=== PATIENT | female | born 1990 | race Caucasian/White ===

== ENCOUNTER 2025-09-30 22:42 | Emergency (ER) | payer OTHER, SELFPAY ==
[2025-09-30 22:46] VITALS: BP 129/90
[2025-10-01] MEDS: NSS 1000 IV (00:19)
[2025-10-01] MEDS: TORADOL 15 MG IV (00:19)
[2025-10-01 00:31] LABS: HCG, Serum Qualitative Screen Negative
[2025-10-01 00:36] LABS: ALT (SGPT) 15 U/L (0-35); AST (SGOT) 21 U/L (14-36); Albumin 4.5 g/dl (3.5-5.0); Alkaline Phosphatase 83 U/L (38-126); Blood Urea Nitrogen 12 mg/dl (7-17); Calcium 9.6 mg/dl (8.4-10.2); Carbon Dioxide 29 mmol/L (22-30); Chloride 104 mmol/L (98-107); Glucose 105 mg/dl (70-99); Potassium 4.1 mmol/L (3.5-5.1); Sodium 139 mmol/L (135-145); Total Protein 6.8 g/dl (6.3-8.2); eGFR > 60.00
[2025-10-01 00:42] LABS: Hematocrit 36.7 % (37.0-47.0); Hemoglobin 12.7 g/dL (12.0-16.0); Mean Corp Hgb Conc. 34.6 g/dL (33.0-37.0); Mean Corpuscular Volume 91.3 fL (81.0-99.0); Nucleated Red Blood Cells % 0 %; Platelet Count 262 10^3/uL (130-400); Red Cell Dist. Width 11.9 % (11.5-14.5)
[2025-10-01 01:05] LABS: Urine Character Cloudy (Clear)
[2025-10-01 01:08] LABS: HCG, Urine Qualitative Screen Negative
--- NOTE | 2025-10-01 01:17 | ED.GENMED ---
History of Present Illness
General
Chief Complaint: Urinary Symptoms
Source: patient
Exam Limitations: none
Time Seen by Provider: 09/30/25 23:27
Nursing documentation reviewed up to this point in time: agreed with
History of Present Illness
History of Present Illness:
Note:
CHIEF COMPLAINT(S)
Kidney pain or lower back pain.
HISTORY OF PRESENT ILLNESS
The patient is a 35-year-old female with a history of kidney stones, presenting with pain in the kidney or lower back area, which she describes as similar to previous kidney stone episodes. The symptoms began on Saturday. The patient reports
experiencing chills and heat flashes but denies any definitive fever, although she noted her temperature reached 99�F. Urination is not painful or difficult but is discolored, and she notes diminished urinary output despite adequate fluid intake,
including water and cranberry juice. The pain remains persistent and unrelieved by Tylenol and ibuprofen.
PAST MEDICAL AND SURGICAL HISTORY
History of kidney stones.
SOCIAL HISTORY
The patient works in animal-assisted therapy. She drinks iced coffee usually once a day but denies smoking. She noted alcohol intake but did not specify frequency or quantity. No drug use.
REVIEW OF SYSTEMS
- General: Reports chills and heat flashes.
- Genitourinary: Discolored urine, decreased urinary output, no painful urination.
PHYSICAL EXAM
General: Alert, no acute distress.
Skin: Warm, dry.
Head: Normocephalic, atraumatic.
Neck: Supple, trachea midline.
Eye Ears, nose, mouth and throat: Oral mucosa moist.
Cardiovascular: Normal peripheral perfusion, No edema.
Respiratory: Respirations are non-labored.
Gastrointestinal: Abdomen nondistended.
Back: Normal range of motion, Normal alignment.
Musculoskeletal: Normal ROM, normal strength.
Neurological: Alert and oriented to person, place, time, and situation, No focal neurological deficit observed.
Psychiatric: Cooperative, appropriate mood & affect.
PLAN
The plan includes obtaining a CT scan of the abdomen to assess the cause of the pain. The patient will also receive IV fluids to assist with hydration.
DIFFERENTIAL DIAGNOSIS
The Differential Diagnosis includes, in no particular order and is not limited to:
1. Nephrolithiasis (Kidney stones)
2. Pyelonephritis
3. Urinary Tract Infection
4. Hydronephrosis
5. Musculoskeletal back pain
6. Lower ureteral calculus
7. Bladder infection or cystitis
8. Retroperitoneal pathology
9. Gynecological causes such as ovarian cyst or torsion
10. Gastrointestinal causes like constipation or diverticulitis
Disposition:
SUMMARY OF ENCOUNTER
The patient, a 35-year-old female with a history of kidney stones, presented with symptoms suggestive of a potential urinary tract infection (UTI) and was evaluated in the emergency department. A CT scan was performed to rule out kidney stones and
other acute abdominal abnormalities. The scan did not reveal any kidney stones or other acute issues. The clinical presentation and findings suggest a urinary tract infection, which aligns with her symptoms of kidney area pain and discolored urine.
The patient was managed with IV fluids for hydration and was prescribed an antibiotic to treat the UTI.
DISPOSITION
Discharge.
ASSESSMENT
The patient is diagnosed with a urinary tract infection.
PLAN
The patient will be started on cephalexin for the treatment of the urinary tract infection. She is to follow up with her primary care provider for further management and to ensure resolution of symptoms.
INDEPENDENT REVIEW OF LABS AND INTERPRETATION OF TESTS
My independent interpretation of the CT scan shows no kidney stones or acute abdominal abnormalities.
PATIENT EDUCATION AND COUNSELING
The patient was informed about the diagnosis of a urinary tract infection and the importance of completing the full course of antibiotics. She was advised to monitor symptoms and seek further medical attention if her condition worsens.
FOLLOW-UP INSTRUCTIONS
The patient is instructed to follow up with her primary care provider for ongoing management of her urinary tract infection and to ensure resolution of symptoms.
MEDICATION RECONCILIATION
The patient has been prescribed cephalexin (Keflex) for the treatment of her urinary tract infection.
MEDICAL DECISION MAKING
- Complexity of Data Reviewed: Chronic conditions affecting care include a history of kidney stones. Differential diagnosis included nephrolithiasis, pyelonephritis, urinary tract infection, hydronephrosis, musculoskeletal back pain, lower ureteral
calculus, bladder infection or cystitis, retroperitoneal pathology, gynecological causes, and gastrointestinal causes.
- Data:
Category 1:
- My independent interpretation of the CT scan shows no kidney stones or acute abdominal abnormalities.
- Risk: Prescription medication was prescribed, specifically cephalexin for the treatment of the urinary tract infection.
DIAGNOSIS
- Urinary tract infection (ICD-10 code: N39.0).
Past History
Past History
ED Past Medical History: None
ED Past Surgical History: None
Social History
Tobacco: Non-smoker
Alcohol: None
Personal: Single
Living: with family
Employment: Employed
Family History
Family History: Other (Noncontributory)
Phy Exam
Physical Exam
Physical Exam:
.
Course
Orders/Labs/Results
Orders:
Orders
09/30/25 23:21
Urinalysis Reflex To Culture Urgent
Date Specimen was Collected: 09/30/25
Time Specimen was Collected: 23:21
09/30/25 23:28
HCG, Urine Qualitative Screen Urgent
Date Specimen was Collected: 10/01/25
Time Specimen was Collected: 00:09
Test Result ONCE
10/01/25
CT Abd/pel Without Iv Or Oral Urgent
Reason For Exam: flank pain
10/01/25 00:12
0.9% Sodium Chloride 1000 ml [Nss] 1,000 ml IV BOLUS
Test Result ONCE
10/01/25 00:13
Complete Blood Count/With Diff Urgent
Comprehensive Metabolic Panel Urgent
HCG, Serum Qualitative Screen Urgent
10/01/25 00:14
Ketorolac [Toradol] 15 mg IV NOW STA
10/01/25 00:56
Urine Microscopic Reflex Cult Urgent
Urine Culture Urgent
ANAMIKA Source: U
Specimen Description:
Date Specimen was Collected: 09/30/25
Time Specimen was Collected: 23:21
10/01/25 02:04
Cephalexin Monohydrate [Keflex] 500 mg PO NOW STA
Abnormal Lab Results
10/01/25 10/01/25
00:13 00:56
RBC 4.02 L 10^6/uL
(4.20-5.40)
Hct 36.7 L %
(37.0-47.0)
MCH 31.6 H pg
(27.0-31.0)
Absolute Neuts (auto) 7.3 H 10^3/uL
(1.4-6.5)
Glucose 105 H mg/dl
(70-99)
Ur Occult Blood Reflex 4+ A
(Negative)
Urine Nitrite (Reflex) Positive A
(Negative)
Leukocyte Esterase Rfl 1+ A
(Negative)
Urine RBC 7-10 A /HPF
(0-2)
Urine Bacteria (Reflex) Many A
(Negative)
Urine Albumin (Reflex) 2+ A
(Neg - Trace)
10/01/25 00:13
10/01/25 00:13
Vital Signs
Initial and Last Documented VS:
Initial Vital Signs
Temp Pulse Resp BP Pulse Ox
98.4 F 78 18 129/90 97
09/30/25 22:46 09/30/25 22:46 09/30/25 22:46 09/30/25 22:46 09/30/25 22:46
Last Documented Vital Signs
Temp Pulse Resp BP Pulse Ox
98.4 F 78 18 129/90 97
09/30/25 22:46 09/30/25 22:46 09/30/25 22:46 09/30/25 22:46 10/01/25 01:18
*Pulse Oximetry
SaO2: 97
Oxygen Mode of Delivery: Room air
Patient hypoxic: no
*Critical Care Note
Total Time (30-74mins, 75-104mins- exclusive of procedures): Not Applicable
Update Note
Update Note:
NAME: MANDI CRISTINA
DATE OF EXAM: 10/01/2025
Patient No: [id number]
Physician: TERESITA
Date of : 1990
Past Medical History (entered by Technologist):
Reason For Exam (entered by Technologist):
Other Notes (entered by Technologist): Pt reporting left flank pain with discolored urine. Pt with hx of kidney stones.
Additional Information (per [facility]iologist):
CT ABDOMEN/PELVIS wo CONTRAST
IMPRESSION:
1. No acute abnormality within the abdomen or pelvis.
2. No bowel obstruction. Normal gallbladder and appendix
Incidentals:
- No obstructive uropathy. Nonobstructive left nephrolithiasis
- No hepatic or pancreatic mass.
- No abdominal aortic aneurysm.
- No acute osseous abnormality.
- No acute abnormality within the visualized lungs.
- No acute abnormality within the visualized soft tissues.
Case finalized on 10/01/25 01:09 EST
Grant Lawrence M.D.
This report has been electronically signed and verified by the Radiologist whose name is printed above.
ED Attending Note
-
Portions of this chart may have been created with voice recognition software.� Occasional wrong word or��sound alike� substitutions may have occurred due to the inherent limitations of voice recognition software.
Discharge Plan
Departure
Patient Disposition: Home (Routine Discharge)
Date of Disposition: 10/01/25
Time of Disposition: 02:04
Patient with high blood pressure during this ER visit?: Yes
Condition: Serious
Discharge Problem:
Urinary tract infection
Instructions: Urinary Tract Infection, Adult (DC), Blood in the Urine (Hematuria), Adult (DC)
Prescriptions:
New
diclofenac sodium 75 mg tablet,delayed release (DR/EC)
75 mg PO BID Qty: 10 0RF
cephalexin 500 mg capsule
500 mg PO QID 7 Days Qty: 28 0RF
Referrals:
Darlene Carrington MD [Family Provider, [facility]]
Activity Restrictions/Additional Instructions:
Thank You for choosing [facility].
It was a pleasure meeting you and taking part in your care. We hope for your continued healing and wellness.
Please read discharge instructions in their entirety. However, they are for general education and may not describe your exact diagnosis at discharge. Information on your ER visit and medical conditions were discussed with you along with appropriate
follow up information...
If indicated, please take your medications as instructed and indicated on discharge paperwork.
Please schedule a follow up appointment as directed. Call to schedule an appointment
Please return to the emergency department with ANY change in, persisting, or worsening of symptoms. If any of your symptoms do not improve, or persist, or become more severe within 6-12 hours, please return to the emergency department for further
care.
Please return to the emergency department if you develop a headache, neck pain/stiffness, fever greater than 100.4F, chest pain, shortness of breath, persistent nausea, vomiting, slurred speech, difficulty walking, numbness/tingling, weakness, signs
of infection or any other symptoms that are worrisome to you.
If you have any questions or concerns please do not hesitate to call the Hospital at .
Interventions
Interventions:
*Risk Screen - Suicide Last Done: 09/30/25 22:49
*Neglect/Abuse Screening Last Done: 09/30/25 22:49
*ED- Fall Risk Assessment Last Done: 10/01/25 00:10
*ED COVID-19 Vaccine History Last Done: 10/01/25 00:10
*ED Influenza Vaccine History Last Done: 10/01/25 00:10
*Nursing Disposition Last Done: 10/01/25 02:50
ED-Female Genitourinary Assessment Last Done: 10/01/25 00:11
Discharge Date and Time
Discharge Date/Time: 10/01/25 02:52
Print Language: MALTESE
[2025-10-01 02:01] LABS: Urine Squamous Cell >30 /LPF (Few)
[2025-10-01] MEDS: KEFLEX 500 MG PO (02:33)
== END 2025-10-01 02:52 | disposition home or self-care (01) ==
LOC: EMR 22:42
PROVIDERS: EMERGENCY PHYSICIAN Student in an Organized Health Care Education/Training Program; FAMILY PHYSICIAN Family Medicine
DX: N39.0 Urinary tract infection, site not specified (principal); Z87.442 Personal history of urinary calculi
CPT/HCPCS: 96374; 96361; 99284; 74176; 80053; 81003; 81015; 81025; 84703; 85025; 87086